=== PATIENT | male | born 1960 ===

== ENCOUNTER 2018-05-26 13:00 | Inpatient (IN) | payer OTHER ==
[~2018-05-26] VITALS: Ht 167.6 cm; Wt 77.1 kg
[2018-05-26] MEDS ORDERED: NEXIUM40 M1 PO (18:31)
[2018-05-26] MEDS ORDERED: TRICOR48 MG PO (18:31)
[2018-06-02] MEDS ORDERED: COLACE100 MG PO (11:17)
[2018-06-02] MEDS ORDERED: AMOX-CLAV 875-1 EACH PO (11:19)
[2018-06-02] MEDS ORDERED: PERCOCET 5-3251 EACH PO (11:20)
[2018-06-02] MEDS ORDERED: CLONAZEPAM0.5 M1 PO (11:20)
[2018-06-02] MEDS ORDERED: NEURONTIN800 MG PO (11:20)
== END 2018-06-03 18:32 | disposition home or self-care (01) | DRG 460 ==
LOC: EDUNIT# 13:00 → SURH 06-02 04:20 → O/R 06-02 04:20 → SURH 06-02 07:00
PROVIDERS: ADMIT Orthopaedic Surgery Orthopaedic Surgery of the Spine
PROC: 0SG00AJ Fusion of Lumbar Vertebral Joint with Interbody Fusion Device, Posterior Approach, Anterior Column, Open Approach (ICD-10-PCS; 2018-06-02)
PROC: 0ST20ZZ Resection of Lumbar Vertebral Disc, Open Approach (ICD-10-PCS; 2018-06-02)
PROC: 07DS3ZZ Extraction of Vertebral Bone Marrow, Percutaneous Approach (ICD-10-PCS; 2018-06-02)
PROC: 0SG00A0 Fusion of Lumbar Vertebral Joint with Interbody Fusion Device, Anterior Approach, Anterior Column, Open Approach (ICD-10-PCS; principal; 2018-06-02 07:00)
DX: M43.16 Spondylolisthesis, lumbar region (principal); M48.062 Spinal stenosis, lumbar region with neurogenic claudication